=== PATIENT | male | born 2005 | race Caucasian/White ===

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

== ENCOUNTER 2024-05-11 02:53 | Inpatient (IN) | payer BC, SELFPAY ==
[2024-05-11] VITALS (34 sets, daily range): BP systolic 112–128; BP diastolic 49–80; PULSE 70–144; RESP 13–34; TEMP 36.2–37.7; O2SAT 92–100
--- NOTE | ~2024-05-11 | XR_ITS ---
EXAMINATION: XR chest 1V portable DATE: 05/11/2024 05:31 INDICATION: Asthma exacerbation. TECHNIQUE: A single frontal view of the chest was obtained on 2 radiographs. COMPARISON: None. FINDINGS: There is no pneumonia, pleural effusion, or pneumothorax. The heart size is normal. IMPRESSION: 1. No acute cardiopulmonary disease. Reviewed, dictated and finalized at location A.
--- NOTE | ~2024-05-11 | XR_ITS ---
EXAMINATION: XR chest 1V portable DATE: 05/11/2024 08:53 INDICATION: Shortness of breath. TECHNIQUE: A single frontal view of the chest was obtained. COMPARISON: Chest single view 05/11/2024 at 5:26 AM FINDINGS: There is no pneumonia, pleural effusion, or pneumothorax. The heart size is normal. IMPRESSION: 1. No acute cardiopulmonary disease. Reviewed, dictated and finalized at location A.
--- NOTE | ~2024-05-11 | CT_ITS ---
EXAMINATION: CTA chest PE protocol DATE: 05/11/2024 10:09 INDICATION: Shortness of breath. TECHNIQUE: Computed tomography angiography (CTA) of the chest was performed with 100 mL Omnipaque-350 intravenous contrast timed to evaluate the pulmonary arteries. Coronal maximum intensity projection 3D-reconstructions were created by the technologist. Automated exposure control and iterative reconst ruction technique were employed. The dose-length product was 380.86 mGy-cm. COMPARISON: None. FINDINGS: The lungs demonstrate mild atelectasis. There is a 3 mm nodule in lingula, likely benign. T here are mild groundglass opacities in the upper lobes associated with septal thickening (crazy pavin g). No pleural effusion. The heart size is normal. No pericardial effusion. There is no pulmonary emb olus. The bones are unremarkable. IMPRESSION: 1. No pulmonary embolus. 2. Mild crazy paving pattern in the upper lobes, consistent with inflammation/infection versus mild p ulmonary edema. Reviewed, dictated and finalized at location A. IMPRESSION: 1. No pulmonary embolus. 2. Mild crazy paving pattern in the upper lobes, consistent with inflammation/i nfection versus mild pulmonary edema.
[2024-05-11] MEDS: predniSONE 20 MG TABLET 40 MG PO (03:16)
--- NOTE | 2024-05-11 03:20 | ED.ASTHMA ---
HPI - Asthma General Chief Complaint: Asthma Stated Complaint: SOB, asthma Time Seen by Provider: 05/11/24 03:04 History of Present Illness HPI Narrative: patient presenting with shortness of breath and wheezing, he had history of asthma as a child but recently started having difficulty breathing again consistent with asthma. Does smoke but is trying to quit. Related Data Allergies Allergy/AdvReac Type Severity Reaction Status Date / Time No Known Allergies Allergy Verified 05/11/24 03:00 Review of Systems Review of Systems: All systems reviewed & are unremarkable except as noted in HPI and below PMFSH Past Medical History Medical History ADHD (attention deficit hyperactivity disorder) Asthma Depression Surgical History Surgical History History of tonsillectomy Family History Family History Mother Diabetes mellitus Father Skin cancer of nose Social History Social History Smoking status: Never smoker Alcohol intake: current Substance use type: marijuana Living arrangements: with family Occupation/Education: unemployed Exam Narrative: EXAMINATION OF ORGAN SYSTEMS/BODY AREAS: Constitutional: Vital signs per nursing GENERAL: quite dyspneic with accessory muscle use HEAD: Normal with no signs of head trauma. EYES: EOMI, conjunctiva normal ENT: Hearing grossly intact LUNGS: diminished breath sounds with wheezing, short sentences HEART: Tachycardic ABD: nondistended EXT: Normal range of motion SKIN: [No rashes or lesions.] NEURO: [Alert and oriented x 3. No gross focal sensory or strength deficits.] PSYCH: Normal affect Course Vital Signs Vital signs: Vital Signs Temperature 97.2 F L 05/11/24 02:57 Pulse Rate 138 H 05/11/24 02:57 Respiratory Rate 22 H 05/11/24 02:57 Blood Pressure 122/77 05/11/24 02:57 Pulse Oximetry 92 05/11/24 02:57 Oxygen Delivery Room Air 05/11/24 02:57 Temperature 97.2 F L 05/11/24 02:57 Pulse Rate 130 H 05/11/24 04:20 Respiratory Rate 13 05/11/24 04:20 Blood Pressure 118/66 05/11/24 04:20 Pulse Oximetry 100 05/11/24 04:20 Oxygen Delivery Room Air 05/11/24 02:57 MDM - Asthma MDM Narrative Medical decision making narrative: 19M h/o asthma p/w shortness of breath and wheezing; on exam diffuse wheezing, tachycardia, with labored respirations/belly breathing. Nebs + mag + IVF later, he is still using accessory muscles and still wheezing. I do feel he could benefit from obs at this time until he improves and he is agreeable to this; d/w hospitalist for admission. Lab Data 05/11/24 05:22 05/11/24 05:22 Labs: Lab Results 05/11/24 Range/Units 05:22 WBC Pending RBC Pending Hgb Pending Hct Pending MCV Pending MCH Pending MCHC Pending RDW Pending Plt Count Pending MPV Pending Immature Gran % (Auto) Pending Neut % (Auto) Pending Lymph % (Auto) Pending Young % (Auto) Pending Eos % (Auto) Pending Baso % (Auto) Pending Lymph # (Auto) Pending Young # (Auto) Pending Eos # (Auto) Pending Baso # (Auto) Pending Abs Immat Gran (auto) Pending Absolute Neuts (auto) Pending Absolute Nucleated RBC Pending Nucleated RBC % Pending Sodium 141 (137-145) mmol/L Potassium 4.0 (3.4-5.0) mmol/L Chloride 106 (98-107) mmol/L Carbon Dioxide 23 (22-30) mmol/L Anion Gap 12 (4-12) mmol/L BUN 11 (9-20) mg/dL Creatinine 0.70 (0.7-1.3) mg/dL Estim Creat Clear Calc 172 ml/min Estimated GFR > 60 (59 - ) Glucose 119 H (65-110) mg/dL Calcium 9.0 (8.4-10.2) mg/dL Discharge Plan Discharge Clinical Impression: Asthma with acute exacerbation Pat
[2024-05-11] MEDS: ALBUTEROL SULFATE NEB 2.5 MG/3 ML INH 15 MG INHALATION (03:25)
[2024-05-11] MEDS: IPRATROPIUM BR 0.02% INH SOLN 0.5 MG/2.5 ML VIAL 1 MG INHALATION (03:25)
[2024-05-11] MEDS: LACTATED RINGERS 1,000 ML 999 ML IV CONT ×2 (03:40→04:44)
[2024-05-11] MEDS: MAGNESIUM SULF 2 GM/WATER 50ML 2 GM/50 ML BAG IVPB (03:41)
[2024-05-11 05:27] LABS: Basophils Absolute Auto 0.1 K/mm3 (0.0-0.1); Basophils Percent Auto 0.5 % (0.2-1.2); Eosinophils Absolute Auto 0.5 K/mm3 (0-0.3); Eosinophils Percent Auto 2.1 % (0-4.4); Hematocrit 43.3 % (42.0-52.0); Hemoglobin 14.8 g/dL (14.0-18.0); Immature Granulocyte Absolute 0.09 K/mm3 (0.00-0.031); Immature Granulocyte Percent A 0.4 % (0-0.5); Lymphocytes Absolute Auto 0.95 K/mm3 (0.9-3.2); Lymphocytes Percent Auto 4.4 % (18.3-44.2); Mean Corpuscular HGB Conc 34.2 g/dl (32-36); Mean Corpuscular Hemoglobin 30.9 pg (26-34); Mean Corpuscular Volume 90.4 fl (80-100); Mean Platelet Volume 11.4 fl (7.4-10.4); Monocytes Absolute Auto 1.5 K/mm3 (0.1-0.6); Monocytes Percent Auto 6.8 % (2.6-8.5); Neutrophils Absolute Auto 18.6 K/mm3 (1.3-6.7); Neutrophils Percent Auto 85.8 % (45.5-73.1); Platelet Count Result 290 k/mm3 (150-375); Red Blood Count 4.79 M/mm3 (4.6-6.20); Red Cell Distribution Width 13.2 % (11.5-14.5); White Blood Count 21.6 K/mm3 (4.5-10.0)
[2024-05-11 05:38] LABS: Anion Gap 12 mmol/L (4-12); Blood Urea Nitrogen 11 mg/dL (9-20); Carbon Dioxide 23 mmol/L (22-30); Chloride 106 mmol/L (98-107); Estimated CRCL calculation 172 ml/min; Estimated Glomerular Filt Rate > 60; Glucose 119 mg/dL (65-110); Sodium 141 mmol/L (137-145)
--- NOTE | 2024-05-11 05:56 | ADMGEN ---
This patient, David Ramirez, was admitted to Medical Room 349-01. Patient/family oriented to hospital policies and general routines including ID bracelet, bed and alarms, visiting hours, pain management, procedures, bathroom and other care routines, personal items, smoking policy, room service/diet, and visiting hours. Information on how to activate the Rapid Response Team has been discussed. Patient/Family are encouraged to report perceived risks to care and to ask questions if they do not understand what they are told or what they should do.
[2024-05-11] MEDS: methylPREDNISolone SOD SUCC 125 MG VIAL IV PUSH (06:09)
[2024-05-11] MEDS: IPRATROPIUM 0.5 MG/ALBUTEROL SULFATE 2.5 MG AMPUL.NEB 3 ML INHALATION ×2 (06:22→07:44)
--- NOTE | 2024-05-11 06:32 | PM.IMHP ---
H&P: HPI History of Present Illness Date/Time: 05/11/24 06:32 Chief Complaint: shortness of breath Narrative: This is a 19-year-old male with a past medical history of childhood asthma and seasonal allergies presents to the emergency room with complaints of shortness of breath, cough, wheezing, chest pain and sore throat. He provides the following history which is supplemented by his father with the patient's permission. Last evening he had sudden onset of shortness of breath and wheezing for which he used an albuterol rescue inhaler left over from having COVID in March. When his symptoms did not resolve he came to the emergency room for further treatment. Since having COVID he has had a intermittently productive cough with yellow, brown sputum and over the last couple days he developed a sore throat. He reports having asthma as a child. He recently had an exacerbation in January of this year for which he received an albuterol inhaler. His father reports several half dozen episodes of pneumonia as a child, first at 6 months of age and the last around age 3-4. He also receives injections for his seasonal allergies. On exam he is having shortness of breath with abdominal muscle use. I am told by nursing, the patient, and his father that his work of breathing has improved. He is able to speak in short sentence. He just received IV steroid and a Duoneb prior to my visit at 0650. In the ED labs were fairly unremarkable other than WBC elevation of 21.6. A chest x-ray showed no acute cardiopulmonary process. He received an hour long albuterol neb with ipratropium, 2 L of LR, magnesium 2 grams, and prednisone 40 mg. He was admitted to the medical floor for observation given his persistent wheezing. Upon arrival to the medical floor the case worker ordered Methylprednisolone 125 mg IVP once and another Duoneb. Again, the patient and his father report that he looks improved after these therapies but he still has diffuse wheezing present. [facility] Past Medical History Medical History (Updated 05/11/24 @ 07:25 by Flory Euceda APRN) ADHD (attention deficit hyperactivity disorder) Asthma Depression Strabismus Surgical History Surgical History (Updated 05/11/24 @ 07:25 by Flory Euceda APRN) History of strabismus surgery History of tonsillectomy Hx of tympanostomy tubes Family History Family History Mother Diabetes mellitus Father Skin cancer of nose Grandparent Prostate carcinoma Social History Social History (Updated 05/11/24 @ 07:27 by Flory Euceda APRN) Social History: He is currently in between jobs and lives at home with his parents. He says that he quit smoking tobacco in May of 2023. He is trying to quit smoking marijuana. He use to use daily when he had the money. Last use was 3 days ago. Smoking status: Former smoker Alcohol intake: current Alcohol use details: rarely Substance use type: marijuana Other substance usage details: GUMMIES 2-3 PER WEEK Do You Feel Safe in your Home?: Yes Lack of Transportation: No Lack of Food: Never True Current Housing: I Have Housing Concerned About Future Housing: No Difficulty Paying Gas/Electric Bills: No Difficulty Paying for Meds: No Currently Unemployed: No Education: High School Diploma/GED Difficulty w/ Childcare or Family Care: No Living arrangements: with family Occupation/Education: unemployed Spiritual care concerns: No Meds Home Medications and Allergies Home Medications Medication Instructions Recorded Confirmed Type albuterol sulfate 90 mcg/actuation 1 inh inhalation Q4H PRN Shortness 05/11/24 05/11/24 History aerosol inhaler Of Breath Or Wheezing Allergies Allergy/AdvReac Type Severity Reaction Status Date / Time No Known Allergies Allergy Verified 05/11/24 03:00 Vital Signs Vital Signs - 24 hr 05/11/24 02:57 05/11/24 03:25 05/11/24 04:20 Temperat
--- NOTE | 2024-05-11 08:04 | ECG_ITS ---
Test Date: 2024-05-11 08:27:34 Measurements Intervals [place] Rate: 135 P: 74 VT: 116 QRS: 70 QRSD: 92 T: 57 QT: 331 QTc: 497 Interpretive Statements SINUS TACHYCARDIA WITH SHORT VT INTERVAL INCOMPLETE RIGHT BUNDLE BRANCH BLOCK [90+ ms QRS DURATION, TERMINAL R IN V1/V2, 40+ ms S IN I/aVL/V4/V5/V6] ABNORMAL RHYTHM ECG No previous ECG available for comparison Electronically Signed On 05-12-2024 13:31:37 CDT by Jaison Moser M.D.
[2024-05-11 08:37] LABS: Alveolar/Arterial O2 Gradient 52.5 mmHg; Base Excess ABG -1.7 mEq/l (+/-2.0); Fractional Inspired Oxygen 21 %; HCO3 ABG 21.6 mEq/l (22.0-26.0); Oxyhemoglobin 91.7 % THb (90.0-100.0); PCO2 ABG 33.2 mmHg (35.0-45.0); PO2 ABG 57.5 mmHg (80.0-100.0); PO2 FiO2 Ratio Arterial Blood 2.74 %; Total Hemoglobin 16.3 g/dL (12.0-18.0); pH ABG 7.432 (7.350-7.450)
[2024-05-11 08:38] LABS: Site Drawn RIGHT BRACHIAL
[2024-05-11 08:39] LABS: Device ROOM AIR
[2024-05-11 09:03] LABS: Influenza A QL RT-PCR Negative (Negative); Influenza B QL RT-PCR Negative (Negative); RSV RNA, RT-PCR Negative (Negative); SARS-CoV-2 RNA PCR Negative (Negative)
[2024-05-11] MEDS: ENOXAPARIN 40 MG/0.4 ML SYRINGE SUB-Q (09:25)
[2024-05-11] MEDS: LORATADINE 10 MG TABLET PO (09:25)
[2024-05-11] MEDS: cefTRIAXone 2 GM/NS 100 ML 2 GM/100 ML BAG IVPB (11:01)
[2024-05-11] MEDS: AZITHROMYCIN 500 MG/NS 250 ML 500 MG/250 ML BAG 250 MG IVPB (11:01)
[2024-05-11] MEDS: FUROSEMIDE INJ 40 MG/4 ML VIAL IV PUSH (11:01)
[2024-05-11] MEDS: IPRATROPIUM BR 0.02% INH SOLN 0.5 MG/2.5 ML VIAL INHALATION ×4 (11:41→23:13)
[2024-05-11] MEDS: LEVALBUTEROL NEB 1.25 MG/3 ML INHALATION ×4 (11:41→23:13)
[2024-05-11 12:11] LABS: NT Pro B Type Natriuretic Pept 66 pg/mL (19.9-100)
[2024-05-11] MEDS: methylPREDNISolone SOD SUCC 125 MG VIAL 60 MG IV PUSH ×2 (12:21→18:36)
[2024-05-12] VITALS (31 sets, daily range): BP systolic 119–130; BP diastolic 65–75; PULSE 100–120; RESP 19–21; TEMP 35.7–36.9; O2SAT 86–99
[2024-05-12] MEDS: methylPREDNISolone SOD SUCC 125 MG VIAL 60 MG IV PUSH ×5 (00:21→23:53)
[2024-05-12 03:53] LABS: Hematocrit 47.8 % (42.0-52.0); Hemoglobin 16.3 g/dL (14.0-18.0); Mean Corpuscular HGB Conc 34.1 g/dl (32-36); Mean Corpuscular Hemoglobin 30.7 pg (26-34); Mean Platelet Volume 11.5 fl (7.4-10.4); Platelet Count Result 321 k/mm3 (150-375); Red Blood Count 5.31 M/mm3 (4.6-6.20); Red Cell Distribution Width 13.5 % (11.5-14.5); White Blood Count 17.6 K/mm3 (4.5-10.0)
[2024-05-12 04:07] LABS: Alanine Aminotransferase 21 U/L (6-50); Albumin Level 4.9 g/dL (3.5-5.1); Alkaline Phosphatase 51 U/L (38-126); Anion Gap 16 mmol/L (4-12); Aspartate Amino Transferase 21 U/L (17-59); Bilirubin,Total 0.9 mg/dL (0.2-1.3); Blood Urea Nitrogen 16 mg/dL (9-20); Calcium 9.1 mg/dL (8.4-10.2); Carbon Dioxide 25 mmol/L (22-30); Chloride 100 mmol/L (98-107); Estimated CRCL calculation 152 ml/min; Estimated Glomerular Filt Rate > 60; Glucose 145 mg/dL (65-110); Magnesium 2.3 mg/dL (1.6-2.3); Potassium 4.2 mmol/L (3.4-5.0); Sodium 141 mmol/L (137-145)
[2024-05-12] MEDS: LEVALBUTEROL NEB 1.25 MG/3 ML INHALATION ×5 (04:32→20:10)
[2024-05-12] MEDS: IPRATROPIUM BR 0.02% INH SOLN 0.5 MG/2.5 ML VIAL INHALATION ×5 (04:32→20:10)
[2024-05-12] MEDS: cefTRIAXone 2 GM/NS 100 ML 2 GM/100 ML BAG IVPB (08:32)
[2024-05-12] MEDS: ENOXAPARIN 40 MG/0.4 ML SYRINGE SUB-Q (08:32)
[2024-05-12] MEDS: LORATADINE 10 MG TABLET PO (08:32)
[2024-05-12] MEDS: AZITHROMYCIN 500 MG/NS 250 ML 500 MG/250 ML BAG 250 MG IVPB (08:32)
--- NOTE | 2024-05-12 10:39 | PM.IMPN ---
Progress Note: A&P Assessment and Plan (1) Acute hypoxic respiratory failure: Code(s): J96.01 - Acute respiratory failure with hypoxia Status: Acute Assessment and Plan: Initially on presentation to the ED the patient was not hypoxic requiring oxygen. On admission to the floor an ABG was drawn and he was found to have hypoxemia with diffuse inspiratory, expiratory wheezing, shortness of breath,and substernal chest pressure. Concerns for asthma exacerbation vs bacterial pneumonia vs viral respiratory infection vs pulmonary edema vs PE PH 7.432/pCO2 33.2/pO2 57.5/HCO3 21.6 on 05/11 0830 on room air Patient was placed on BiPAP settings 09/08 rate of 12. Overnight he required FiO2 titration of 45% to maintain saturation greater than 90%. He had documented desaturations to 86% on 35% FiO2. Currently on Vapotherm Hi-flow 35%, 35 L satting 96% Leukocytosis of 21.6 present on admission. WBC 17.6 today CTA of the chest was negative for PE. It did have concerns for mild crazy paving pattern in upper lobes, consistent with inflammation/infection vs mild pulmonary edema. He was given Lasix 40 mg x 1. BNP normal at 66. Antibiotic coverage for CAP with Rocephin and Azithromycin Xopenex/Atrovent Q 4 hours scheduled, Solu-Medrol 60 mg IVP q 6 hours Viral respiratory panel was negative Sputum culture was ordered as well as urine legionella, pneumococcal antigen, and mycoplasma IgM antibody Procalcitonin pending, Blood cultures pending Pulmonology was consulted and will see the patient tomorrow (2) Asthma with acute exacerbation: Code(s): J45.901 - Unspecified asthma with (acute) exacerbation Status: Acute Assessment and Plan: History of childhood asthma. Recent exacerbation in January of this year for which he was seen at Urgent care. He was given antibiotics and an albuterol inhaler with a diagnosis of bronchitis. His mother reports a frequent history of pneumonia as a child. He was even worked up for cystic fibrosis. Plan DVT prophylaxis: Lovenox GI prophylaxis: Not applicable Glycemic control: Not applicable Code Status: Full code Disposition: 19-year-old male who presented from home with complaints of shortness of breath, wheezing and was found to be in a presumed asthma exacerbation. He did have a leukocytosis with complaints of productive alan sputum. He was admitted to medical floor initially and then transferred to IMU for BiPAP. He is receiving IV steroids, nebulizers, and high-flow oxygen therapy for hypoxemia. [employer] Consultant has been consulted and will follow with him tomorrow morning. Blood cultures and sputum culture pending. Medication reconciliation obtained via the following: Nurse completed on admission The file time of this note does not necessarily represent the time the patient was seen. Advance Care Plan I have confirmed that the patient's Advanced Care Plan is present, code status is documented, or surrogate decision maker is listed in patient medical record.: Yes Medication Reconciliation I have utilized all available resources to obtain, update and review the patients current medications (includes all prescriptions, OTC, herbals, cannabis, and nutritional supplements).: Yes Subjective Date/time seen: 05/12/24 10:39 Interval history: This is a 19-year-old male with a past medical history of childhood asthma and seasonal allergies presents to the emergency room with complaints of shortness of breath, cough, wheezing, chest pain and sore throat. He is being treated for a severe asthma exacerbation requiring steroids, nebulizers, and BiPAP. 05/12: James is feeling a little better today. He tolerated BiPAP all night. His wheezing has improved considerably since yesterday but it
[2024-05-12 11:53] LABS: Procalcitonin 0.1 ng/mL
[2024-05-12 13:40] LABS: MRSA (PCR) NOT DETECTED (NOT DETECTE)
[2024-05-13] VITALS (29 sets, daily range): BP systolic 117–122; BP diastolic 63–71; PULSE 94–118; RESP 18–22; TEMP 35.9–36.6; O2SAT 93–100
[2024-05-13] MEDS: IPRATROPIUM BR 0.02% INH SOLN 0.5 MG/2.5 ML VIAL INHALATION ×6 (01:14→20:23)
[2024-05-13] MEDS: LEVALBUTEROL NEB 1.25 MG/3 ML INHALATION ×6 (01:14→20:23)
[2024-05-13 04:50] LABS: Basophils Percent Auto 0.1 % (0.2-1.2); Hematocrit 47.1 % (42.0-52.0); Hemoglobin 15.6 g/dL (14.0-18.0); Immature Granulocyte Absolute 0.16 K/mm3 (0.00-0.031); Immature Granulocyte Percent A 0.7 % (0-0.5); Lymphocytes Absolute Auto 0.73 K/mm3 (0.9-3.2); Lymphocytes Percent Auto 3.2 % (18.3-44.2); Mean Corpuscular HGB Conc 33.1 g/dl (32-36); Mean Corpuscular Hemoglobin 30.2 pg (26-34); Mean Corpuscular Volume 91.1 fl (80-100); Mean Platelet Volume 11.9 fl (7.4-10.4); Monocytes Absolute Auto 0.5 K/mm3 (0.1-0.6); Monocytes Percent Auto 2.3 % (2.6-8.5); Neutrophils Absolute Auto 21.1 K/mm3 (1.3-6.7); Neutrophils Percent Auto 93.7 % (45.5-73.1); Platelet Count Result 360 k/mm3 (150-375); Red Blood Count 5.17 M/mm3 (4.6-6.20); Red Cell Distribution Width 13.3 % (11.5-14.5); White Blood Count 22.5 K/mm3 (4.5-10.0)
[2024-05-13 05:03] LABS: Alanine Aminotransferase 37 U/L (6-50); Albumin Level 4.4 g/dL (3.5-5.1); Alkaline Phosphatase 46 U/L (38-126); Anion Gap 14 mmol/L (4-12); Aspartate Amino Transferase 31 U/L (17-59); Bilirubin,Total 0.8 mg/dL (0.2-1.3); Blood Urea Nitrogen 18 mg/dL (9-20); Carbon Dioxide 24 mmol/L (22-30); Chloride 101 mmol/L (98-107); Estimated CRCL calculation 172 ml/min; Estimated Glomerular Filt Rate > 60; Glucose 160 mg/dL (65-110); Potassium 4.1 mmol/L (3.4-5.0); Sodium 139 mmol/L (137-145)
[2024-05-13] MEDS: methylPREDNISolone SOD SUCC 125 MG VIAL 60 MG IV PUSH ×3 (06:18→18:14)
[2024-05-13] MEDS: ENOXAPARIN 40 MG/0.4 ML SYRINGE SUB-Q (08:44)
[2024-05-13] MEDS: AZITHROMYCIN 500 MG/NS 250 ML 500 MG/250 ML BAG 250 MG IVPB (08:45)
[2024-05-13] MEDS: cefTRIAXone 2 GM/NS 100 ML 2 GM/100 ML BAG IVPB (08:45)
[2024-05-13] MEDS: LORATADINE 10 MG TABLET PO (08:45)
--- NOTE | 2024-05-13 10:30 | PM.IMPN ---
Progress Note: A&P Assessment and Plan (1) Acute hypoxic respiratory failure: Code(s): J96.01 - Acute respiratory failure with hypoxia Status: Acute Assessment and Plan: Initially on presentation to the ED the patient was not hypoxic requiring oxygen. On admission to the floor an ABG was drawn and he was found to have hypoxemia with diffuse inspiratory, expiratory wheezing, shortness of breath,and substernal chest pressure. Concerns for asthma exacerbation vs bacterial pneumonia vs viral respiratory infection vs pulmonary edema vs PE PH 7.432/pCO2 33.2/pO2 57.5/HCO3 21.6 on 05/11 0830 on room air Patient was placed on BiPAP settings 09/08 rate of 12. Overnight he required FiO2 titration of 45% to maintain saturation greater than 90%. He had documented desaturations to 86% on 35% FiO2. Currently on Vapotherm Hi-flow 35%, 35 L satting 96% Leukocytosis of 21.6 present on admission. WBC 17.6 today CTA of the chest was negative for PE. It did have concerns for mild crazy paving pattern in upper lobes, consistent with inflammation/infection vs mild pulmonary edema. He was given Lasix 40 mg x 1. BNP normal at 66. Antibiotic coverage for CAP with Rocephin and Azithromycin Xopenex/Atrovent Q 4 hours scheduled, Solu-Medrol 60 mg IVP q 6 hours Viral respiratory panel was negative Sputum culture was ordered as well as urine legionella, pneumococcal antigen, and mycoplasma IgM antibody Procalcitonin 0.1, Blood cultures no growth to date Pulmonology was consulted and will see the patient tomorrow Started on Ensure as his intake is poor (2) Asthma with acute exacerbation: Code(s): J45.901 - Unspecified asthma with (acute) exacerbation Status: Acute Assessment and Plan: History of childhood asthma. Recent exacerbation in January of this year for which he was seen at Urgent care. He was given antibiotics and an albuterol inhaler with a diagnosis of bronchitis. His mother reports a frequent history of pneumonia as a child. He was even worked up for cystic fibrosis. (3) Anxiety: Code(s): F41.9 - Anxiety disorder, unspecified Status: Acute Assessment and Plan: Reports a history of depression and anxiety. He told nursing he was previously on BuSpar in the past as well as Ativan as needed. He is having some anxiety surrounding his admission and is feeling anxious about being stuck in the hospital. Hesitant to give him benzodiazepine with his respiratory failure Will trial hydroxyzine TID PRN for anxiety Plan DVT prophylaxis: Lovenox GI prophylaxis: Not applicable Glycemic control: Not applicable Code Status: Full code Disposition: 19-year-old male who presented from home with complaints of shortness of breath, wheezing and was found to be in a presumed asthma exacerbation. He did have a leukocytosis with complaints of productive alan sputum. He was admitted to medical floor initially and then transferred to IMU for BiPAP. He is receiving IV steroids, nebulizers, and high-flow oxygen therapy for hypoxemia. Respooler has been consulted. Blood cultures with no growth to date, sputum culture pending. His procalcitonin was normal. Medication reconciliation obtained via the following: Nurse completed on admission The file time of this note does not necessarily represent the time the patient was seen. Subjective Date/time seen: 05/13/24 10:30 Interval history: This is a 19-year-old male with a past medical history of childhood asthma and seasonal allergies presents to the emergency room with complaints of shortness of breath, cough, wheezing, chest pain and sore throat. He is being treated for a severe asthma exacerbation requiring steroids, nebulizers, and BiPAP. 05/12: Mr Ramirez is feeling a little better today. He tolerated BiPAP all night. His wheezing has improved co
[2024-05-13] MEDS: hydrOXYzine HCL 25 MG TABLET PO (12:46)
--- NOTE | 2024-05-13 17:45 | PM.CNPUL ---
Assessment and Plan Assessment and plan (1) Acute hypoxic respiratory failure: Code(s): J96.01 - Acute respiratory failure with hypoxia Status: Acute Assessment and Plan: He has not used O2 in the past, does not have significant infiltrates on CTA. He has a crazy paving mosaic attenuation pattern, non-specific pattern that can be seen in infection, inflammatory conditions or pulmonary edema. He had IV Lasix on day of admission. His investigative studies are negative for a pathogen. The serology on admission is negative, no SARS-CoV-2, influenza A/B or RSV. MRSA swab negative, urine antigens pending for Legionella an Strep pneumo. Will check extended respiratory pathogen panel, large panel of mostly viral pathogens. Echo with bubble study to rule out intra-cardiac shunt as cause for hypoxemia. (2) Asthma with acute exacerbation: Code(s): J45.901 - Unspecified asthma with (acute) exacerbation Status: Acute Assessment and Plan: History of asthma from premature until age 1, improved with removal of tonsils and adenoids age 5. No problems until recently with respiratory decompensation May requiring Urgent Care, then COVID in March, no improvement since then. (3) History of nicotine vaping: Code(s): Z87.891 - Personal history of nicotine dependence Status: Acute Assessment and Plan: He was never a tobacco leaf smoker, only a nicotine user by vaping, quit a year ago today. He used marijuana not regularly, and not margarita at all recently. He is encouraged to wait until his brain is fully formed, avoid until then because of the neurologic effects but also his breathing; Not silva to put anything and fire into lungs especially with asthma, post infectious problems. (4) Rhinitis: Code(s): J31.0 - Chronic rhinitis Status: Acute Assessment and Plan: He has rhinitis, atopy with reactions to cats and molds, on immunotherapy started weekly injections a month ago, last injection May 08. He is on Claritin, IV solumedrol. Lowered dose of IV solumedrol to 40 mg Q 6 hours. (5) Atopy: Code(s): Z88.9 - Allergy status to unspecified drugs, medicaments and biological substances Status: Acute Assessment and Plan: see above Plan 1. Echo with bubble study; it is not common to have asthma exacerbations with significant hypoxemia. He is on AirVo, echo with bubble to r/o intracardiac shunt as contributing factor. 2. Extended respiratory pathogen panel; PPI AC b.i.d; excessive coughing often forces gastric acid into the airway, worsening coughing; wean IV steroids now 60 mg IV Q 6 hours, decrease to 40 IV Q 6 hours 3. Peak and post peak flows, pre and post nebulized bronchodilator treatments 4. He will need controller therapy on discharge; 5. When stable a few weeks out, will need full PFT and 6 Minute Walk. 6. He had 2nd episode of COVID in March 2024, has residual shortness of breath nghia with exertion and, at times, after exertion; he has rapid increase in heart rate and drop in saturation with exertion. He may have post COVID POTS, postural orthostatic tachycardia syndrome, could improve with medications, fluids, physical therapy, and conditioning. Will check his orthostatic vital signs prior to discharge. This could be a component of long COVID, and his shortness of breath also may reflect recent COVID. 7. Home O2 study before discharge. May need O2 when he leaves, will be able to wean at home. History of Present Illness History of Present Illness Consult date: 05/13/24 Requesting physician: Flory Euceda APRN Chief complaint: Asthma Exac Narrative: May 13, 2024 at 17:52 Room 214; his family is at the bedside, mother
[2024-05-13] MEDS: methylPREDNISolone SOD SUCC 40 MG VIAL IV PUSH (23:43)
[2024-05-14] VITALS (33 sets, daily range): BP systolic 122–130; BP diastolic 62–81; PULSE 68–117; RESP 18–20; TEMP 36.3–36.9; O2SAT 92–99
--- NOTE | 2024-05-14 | ECHO_ITS ---
Patient Info Name: David Ramirez Age: 19 years : 2005 Gender: Male Ht: 75 in Wt: 199 lbs BSA: 2.19 m2 HR: 75 bpm BP: 126 / 62 mmHg Technical Quality: Fair Exam Date: 05/14/2024 11:39 AM Exam Location: Echo Lab Patient Status: Inpatient Admit Date: 05/11/2024 Staff Ordering Physician: Charlette Buck MD Rolling Attendant: Francia Nguyen RDCs Attending Provider: Soleadd Farzier APRN Referring Physician: Heber JUSTICE; Exam Type: CA echo doppler w bubble study Study Info Indications J96.91 - Respiratory failure, unspecified with hypoxia Complete two-dimensional, color flow and Doppler transthoracic echocardiogram is performed. Summary 1. Complete two-dimensional, color flow and Doppler transthoracic echocardiogram is performed. 2. Left ventricular chamber dimension is normal. 3. Left ventricular systolic function is normal, estimated at 65-70%. 4. The left ventricular diastolic function is normal. 5. E/e' 6 is not elevated. 6. Agitated saline injection with and without valsalva maneuver opacified right side cardiac chambers with a few bubbles shunting to left side cardiac chambers suggestive of small patent foramen ovale. 7. There is trace mitral valve regurgitation. 8. There is trace tricuspid valve regurgitation. 9. RVSP is not calculated due to an inadequate TR jet. Left Ventricle E/e' 6 is not elevated. Left ventricular chamber dimension is normal. Left ventricular systolic function is normal, estimated at 65-70%. The left ventricular diastolic function is normal. Right Ventricle Right ventricular systolic function is normal and with normal TAPSE 2.4 cm. Right ventricular chamber dimension is normal. Left Atria Left atrial chamber dimension is normal. Right Atria Right atrial chamber dimension is normal. Atrial Septum Agitated saline injection with and without valsalva maneuver opacified right side cardiac chambers with a few bubbles shunting to left side cardiac chambers suggestive of small patent foramen ovale. Suspected patent foramen ovale visualized by 2D and agitated saline imaging. Aortic Valve The aortic valve is trileaflet. There is no aortic valve stenosis. There is no aortic valve regurgitation. Pulmonic Valve There is no pulmonic regurgitation. Mitral Valve There is no mitral valve stenosis. There is trace mitral valve regurgitation. Tricuspid Valve There is trace tricuspid valve regurgitation. RVSP is not calculated due to an inadequate TR jet. Pericardium/Pleural There is no pericardial effusion. Inferior Vena Cava Normal inferior vena cava with >50% collapse upon inspiration consistent with normal right atrial pressure, 5 mmHg. Aorta The aortic root size at the sinus of Valsalva is normal. Left Ventricular Outflow Tract Name Value Normal LVOT 2D LVOT Diameter 2.1 cm LVOT Doppler LVOT Peak Gradient 5 mmHg LVOT Mean Gradient 2 mmHg LVOT VTI 16 cm LVOT VTI/AV VTI Ratio 0.9 LVOT Stroke Volume 59 ml LVOT CO 5.8 l/min LVOT CI 2.6 l/min/m2
[2024-05-14] MEDS: IPRATROPIUM BR 0.02% INH SOLN 0.5 MG/2.5 ML VIAL INHALATION ×7 (01:02→23:40)
[2024-05-14] MEDS: LEVALBUTEROL NEB 1.25 MG/3 ML INHALATION ×7 (01:02→23:40)
[2024-05-14 06:01] LABS: Alanine Aminotransferase 36 U/L (6-50); Alkaline Phosphatase 42 U/L (38-126); Anion Gap 11 mmol/L (4-12); Aspartate Amino Transferase 22 U/L (17-59); Basophils Percent Auto 0.1 % (0.2-1.2); Bilirubin,Total 0.7 mg/dL (0.2-1.3); Blood Urea Nitrogen 14 mg/dL (9-20); Calcium 8.7 mg/dL (8.4-10.2); Carbon Dioxide 24 mmol/L (22-30); Chloride 103 mmol/L (98-107); Estimated CRCL calculation 198 ml/min; Estimated Glomerular Filt Rate > 60; Glucose 140 mg/dL (65-110); Hematocrit 45.3 % (42.0-52.0); Hemoglobin 14.8 g/dL (14.0-18.0); Immature Granulocyte Absolute 0.16 K/mm3 (0.00-0.031); Lymphocytes Absolute Auto 0.84 K/mm3 (0.9-3.2); Lymphocytes Percent Auto 5.3 % (18.3-44.2); Mean Corpuscular HGB Conc 32.7 g/dl (32-36); Mean Corpuscular Volume 91.7 fl (80-100); Mean Platelet Volume 11.9 fl (7.4-10.4); Monocytes Absolute Auto 0.5 K/mm3 (0.1-0.6); Neutrophils Absolute Auto 14.5 K/mm3 (1.3-6.7); Neutrophils Percent Auto 90.6 % (45.5-73.1); Platelet Count Result 339 k/mm3 (150-375); Potassium 3.9 mmol/L (3.4-5.0); Red Blood Count 4.94 M/mm3 (4.6-6.20); Red Cell Distribution Width 13.3 % (11.5-14.5); Sodium 138 mmol/L (137-145)
[2024-05-14] MEDS: PANTOPRAZOLE SOD SESQUIHYDRATE 20 MG TAB PO ×2 (06:28→17:16)
[2024-05-14] MEDS: methylPREDNISolone SOD SUCC 40 MG VIAL IV PUSH ×3 (06:28→17:16)
[2024-05-14] MEDS: LORATADINE 10 MG TABLET PO (08:47)
[2024-05-14] MEDS: ENOXAPARIN 40 MG/0.4 ML SYRINGE SUB-Q (08:47)
[2024-05-14] MEDS: cefTRIAXone 2 GM/NS 100 ML 2 GM/100 ML BAG IVPB (08:47)
[2024-05-14] MEDS: AZITHROMYCIN 500 MG/NS 250 ML 500 MG/250 ML BAG 250 MG IVPB (08:47)
--- NOTE | 2024-05-14 11:27 | PM.IMPN ---
Progress Note: A&P Assessment and Plan (1) Acute hypoxic respiratory failure: Code(s): J96.01 - Acute respiratory failure with hypoxia Status: Acute Assessment and Plan: Initially on presentation to the ED the patient was not hypoxic requiring oxygen. On admission to the floor an ABG was drawn and he was found to have hypoxemia with diffuse inspiratory, expiratory wheezing, shortness of breath,and substernal chest pressure. Concerns for asthma exacerbation vs bacterial pneumonia vs viral respiratory infection vs pulmonary edema vs PE PH 7.432/pCO2 33.2/pO2 57.5/HCO3 21.6 on 05/11 0830 on room air Patient was placed on BiPAP settings 09/08 rate of 12. Overnight he required FiO2 titration of 45% to maintain saturation greater than 90%. He had documented desaturations to 86% on 35% FiO2. Currently on Vapotherm Hi-flow 35%, 35 L satting 96% Leukocytosis of 21.6 present on admission. WBC 17.6-->22-->16.0 CTA of the chest was negative for PE. It did have concerns for mild crazy paving pattern in upper lobes, consistent with inflammation/infection vs mild pulmonary edema. He was given Lasix 40 mg x 1. BNP normal at 66. Antibiotic coverage for CAP with Rocephin and Azithromycin Xopenex/Atrovent Q 4 hours scheduled Solu-Medrol 60 mg IVP q 6 hours---Starting to wean 05/13, now Solu-medrol 40 mg q 6 hours Viral respiratory panel was negative. Extended panel sent. Sputum culture was ordered as well as urine legionella, pneumococcal antigen, and mycoplasma IgM antibody Procalcitonin 0.1, Blood cultures no growth to date Pre and Post peak flows ordered by pulm. Will need repeat testing and 6 minute walk test as an outpatient. Possibly COVID POTS causing tachycardia? Orthostatic vitals at discharge. ECHO is pending today for possible intracardiac source He will need inhalers at discharge for his asthma Pulmonology was consulted, recs are noted and appreciated Started on Ensure as his intake is poor (2) Asthma with acute exacerbation: Code(s): J45.901 - Unspecified asthma with (acute) exacerbation Status: Acute Assessment and Plan: History of childhood asthma. Recent exacerbation in January of this year for which he was seen at Urgent care. He was given antibiotics and an albuterol inhaler with a diagnosis of bronchitis. His mother reports a frequent history of pneumonia as a child. He was even worked up for cystic fibrosis. (3) Anxiety: Code(s): F41.9 - Anxiety disorder, unspecified Status: Acute Assessment and Plan: Reports a history of depression and anxiety. He told nursing he was previously on BuSpar in the past as well as Ativan as needed. He is having some anxiety surrounding his admission and is feeling anxious about being stuck in the hospital. Hesitant to give him benzodiazepine with his respiratory failure Will trial hydroxyzine TID PRN for anxiety Plan DVT prophylaxis: Lovenox GI prophylaxis: Not applicable Glycemic control: Not applicable Code Status: Full code Disposition: 19-year-old male who presented from home with complaints of shortness of breath, wheezing and was found to be in a presumed asthma exacerbation with acute hypoxic respiratory failure. He did have a leukocytosis with complaints of productive alan sputum. He was admitted to medical floor initially and then transferred to IMU for BiPAP. He is receiving IV steroids, nebulizers, and high-flow oxygen therapy for hypoxemia. [facility] has been consulted. Blood cultures with no growth to date, sputum culture pending. His procalcitonin was normal. He is getting an echocardiogram today. Medication reconciliation obtained via the following: Nurse completed on admission The file time of this note does not necessarily represent the time the patient was seen. Subjective Date/time seen: 05/02
--- NOTE | 2024-05-14 17:04 | PM.PNPUL ---
Progress Note: A&P Assessment and Plan (1) Acute hypoxic respiratory failure: Code(s): J96.01 - Acute respiratory failure with hypoxia Status: Acute Assessment and Plan: He has not used O2 in the past, does not have significant infiltrates on CTA; crazy paving mosaic attenuation pattern, non-specific pattern that can be seen in infection, inflammatory conditions or pulmonary edema. Improved with IV Lasix on day of admission. Serologies negative; serology = negative for SARS-CoV-2, influenza A/B or RSV. MRSA swab negative. Echo 05/14/24 is negative, no significant shunt. Urine antigens pending for Legionella an Strep pneumo, mycoplasma, and extended respiratory pathogen panel are also pending. . O2 need now 5 L/min, off AirVO. (2) Asthma with acute exacerbation: Code(s): J45.901 - Unspecified asthma with (acute) exacerbation Status: Acute Assessment and Plan: History of asthma from premature until age 1, improved with removal of tonsils and adenoids age 5. No problems until recently with respiratory decompensation in January requiring Urgent Care, then COVID in March, has not been able to return to baseline. His peak flows are 52-59% best predicted peak flow, his best predicted lower limit of normal is 517 L/min. This is Yellow zone; goal is to have him improved by discharge, and he may always be in the yellow zone. We will establish his actual normal values after discharge and recovery. (3) History of nicotine vaping: Code(s): Z87.891 - Personal history of nicotine dependence Status: Acute Assessment and Plan: He was never a tobacco leaf smoker, only a nicotine user by vaping, quit a year ago today. He used marijuana not regularly, and not much at all recently. He is encouraged to wait until his brain is fully formed, avoid until then because of the neurologic effects but also his breathing; Not silva to put anything and fire into lungs especially with asthma, post infectious problems. (4) Rhinitis: Code(s): J31.0 - Chronic rhinitis Status: Acute Assessment and Plan: He has rhinitis, atopy with reactions to cats and molds, on immunotherapy started weekly injections a month ago, last injection May 08. He is on Claritin, IV solumedrol. Lowered dose of IV solumedrol to 40 mg Q 6 hours. (5) Atopy: Code(s): Z88.9 - Allergy status to unspecified drugs, medicaments and biological substances Status: Acute Assessment and Plan: Plan 1. He is improving, and may be ready for discharge in the next 2 days. O2 need is lower, less coughing and less short of breath. He can eat and drink adequately. He is on 5 L/min, saturation is mid 90s. High heart rate with walking may be POTS, may be due to long COVID. 2. He will need controller therapy on discharge; his estimated best predicted peak flow height 75 inches, 19 yo male could be 517 L/min; green 418 to 517; yellow 258 to 417; below 258 = red. he has been achieving 350 - 400 L/min, yellow zone since admission. I labeled his PF meter; he can start measuring, recording values at home. 3. When stable a few weeks out, will need full PFT and 6 Minute Walk. 4. He had 2nd episode of COVID in March 2024, has residual shortness of breath nghia with exertion and, at times, after exertion; he has rapid increase in heart rate and drop in saturation with exertion. He may have post COVID POTS, postural orthostatic tachycardia syndrome, could improve with medications, fluids, physical therapy, and conditioning. 5. Check his orthostatic vital signs prior to discharge. This could be a component of l
[2024-05-14] MEDS: AMOXICILLIN/CLAVULANATE K 875-125 MG TAB 1 TABLET PO (22:17)
[2024-05-14] MEDS: MELATONIN 5 MG TABLET PO (22:18)
[2024-05-15] VITALS (22 sets, daily range): BP systolic 118–139; BP diastolic 56–82; PULSE 57–121; RESP 18–20; TEMP 36.1–36.4; O2SAT 93–97
[2024-05-15] MEDS: methylPREDNISolone SOD SUCC 40 MG VIAL IV PUSH (00:04)
[2024-05-15 04:49] LABS: Basophils Percent Auto 0.2 % (0.2-1.2); Eosinophils Percent Auto 0.1 % (0-4.4); Hematocrit 44.5 % (42.0-52.0); Hemoglobin 14.4 g/dL (14.0-18.0); Immature Granulocyte Absolute 0.21 K/mm3 (0.00-0.031); Immature Granulocyte Percent A 1.4 % (0-0.5); Lymphocytes Absolute Auto 0.95 K/mm3 (0.9-3.2); Lymphocytes Percent Auto 6.4 % (18.3-44.2); Mean Corpuscular HGB Conc 32.4 g/dl (32-36); Mean Corpuscular Hemoglobin 30.1 pg (26-34); Mean Corpuscular Volume 93.1 fl (80-100); Mean Platelet Volume 11.6 fl (7.4-10.4); Monocytes Absolute Auto 0.6 K/mm3 (0.1-0.6); Neutrophils Absolute Auto 13.1 K/mm3 (1.3-6.7); Neutrophils Percent Auto 87.9 % (45.5-73.1); Platelet Count Result 341 k/mm3 (150-375); Red Blood Count 4.78 M/mm3 (4.6-6.20); Red Cell Distribution Width 13.2 % (11.5-14.5); White Blood Count 14.9 K/mm3 (4.5-10.0)
[2024-05-15 04:57] LABS: Alanine Aminotransferase 55 U/L (6-50); Albumin Level 3.7 g/dL (3.5-5.1); Alkaline Phosphatase 39 U/L (38-126); Anion Gap 8 mmol/L (4-12); Aspartate Amino Transferase 26 U/L (17-59); Bilirubin,Total 0.5 mg/dL (0.2-1.3); Blood Urea Nitrogen 12 mg/dL (9-20); Calcium 8.6 mg/dL (8.4-10.2); Carbon Dioxide 25 mmol/L (22-30); Chloride 105 mmol/L (98-107); Estimated CRCL calculation 198 ml/min; Estimated Glomerular Filt Rate > 60; Glucose 135 mg/dL (65-110); Potassium 4.3 mmol/L (3.4-5.0); Sodium 138 mmol/L (137-145)
[2024-05-15] MEDS: LEVALBUTEROL NEB 1.25 MG/3 ML INHALATION ×4 (04:59→14:57)
[2024-05-15] MEDS: IPRATROPIUM BR 0.02% INH SOLN 0.5 MG/2.5 ML VIAL INHALATION ×4 (04:59→14:57)
[2024-05-15] MEDS: PANTOPRAZOLE SOD SESQUIHYDRATE 20 MG TAB PO (06:30)
[2024-05-15] MEDS: AMOXICILLIN/CLAVULANATE K 875-125 MG TAB 1 TABLET PO (08:29)
[2024-05-15] MEDS: LORATADINE 10 MG TABLET PO (08:29)
[2024-05-15] MEDS: predniSONE 10 MG TABLET 60 MG PO (08:29)
[2024-05-15] MEDS: ENOXAPARIN 40 MG/0.4 ML SYRINGE SUB-Q (08:34)
--- NOTE | 2024-05-15 11:53 | PCRCNOTE ---
Home O2 eval complete. Patient does not require Home O2 at this time. RN notified.
--- NOTE | 2024-05-15 14:15 | P.DS_ITS ---
DS: Admitting Diagnosis Discharge Date 05/15/2024 Admitting Diagnosis Acute respiratory failure with hypoxia secondary to asthma exacerbation/pneumonia DS: Discharge Diagnosis Discharge Diagnosis (1) Acute hypoxic respiratory failure: Code(s): J96.01 - Acute respiratory failure with hypoxia Status: Acute Assessment and Plan: Initially on presentation to the ED the patient was not hypoxic requiring oxygen. On admission to the floor an ABG was drawn and he was found to have hypoxemia with diffuse inspiratory, expiratory wheezing, shortness of breath,and substernal chest pressure. Concerns for asthma exacerbation vs bacterial pneumonia vs viral respiratory infection vs pulmonary edema vs PE * PH 7.432/pCO2 33.2/pO2 57.5/HCO3 21.6 on 05/11 0830 on room air * Patient was placed on BiPAP settings 09/08 rate of 12. Overnight he required FiO2 titration of 45% to maintain saturation greater than 90%. He had documented desaturations to 86% on 35% FiO2. * Currently on Vapotherm Hi-flow 35%, 35 L satting 96% * Leukocytosis of 21.6 present on admission. WBC 17.6-->22-->16.0 * CTA of the chest was negative for PE. It did have concerns for mild crazy paving pattern in upper lobes, consistent with inflammation/infection vs mild pulmonary edema. * He was given Lasix 40 mg x 1. BNP normal at 66. * Antibiotic coverage for CAP with Rocephin and Azithromycin * Xopenex/Atrovent Q 4 hours scheduled * Solu-Medrol 60 mg IVP q 6 hours---Starting to wean 05/13, now Solu-medrol 40 mg q 6 hours * Viral respiratory panel was negative. Extended panel sent. * Sputum culture was ordered as well as urine legionella, pneumococcal antigen, and mycoplasma IgM antibody * Procalcitonin 0.1, Blood cultures no growth to date * Pre and Post peak flows ordered by pulm. Will need repeat testing and 6 minute walk test as an outpatient. * Possibly COVID POTS causing tachycardia? Orthostatic vitals at discharge. * ECHO is pending today for possible intracardiac source * He will need inhalers at discharge for his asthma * Pulmonology was consulted, recs are noted and appreciated * Started on Ensure as his intake is poor (2) Asthma with acute exacerbation: Code(s): J45.901 - Unspecified asthma with (acute) exacerbation Status: Acute Assessment and Plan: History of childhood asthma. Recent exacerbation in January of this year for which he was seen at Urgent care. He was given antibiotics and an albuterol inhaler with a diagnosis of bronchitis. His mother reports a frequent history of pneumonia as a child. He was even worked up for cystic fibrosis. (3) Anxiety: Code(s): F41.9 - Anxiety disorder, unspecified Status: Acute Assessment and Plan: Reports a history of depression and anxiety. He told nursing he was previously on BuSpar in the past as well as Ativan as needed. He is having some anxiety surrounding his admission and is feeling anxious about being stuck in the hospital. * Hesitant to give him benzodiazepine with his respiratory failure * Will trial hydroxyzine TID PRN for anxiety Plan Disposition: Patient discharged to home follow-up with Pulmonology 2 weeks for PFT and 6 min walk study DS: Summary Hospital Course Reason for hospitalization: Acute respiratory failure with hypoxia secondary to asthma exacerbation/pneumonia Hospital Course: This was a 19-year-old male with a past medical history of childhood asthma and seasonal allergies presents to t
--- NOTE | 2024-05-15 14:15 | PM.DS ---
DS: Admitting Diagnosis Discharge Date 05/15/2024 Admitting Diagnosis Acute respiratory failure with hypoxia secondary to asthma exacerbation/pneumonia DS: Discharge Diagnosis Discharge Diagnosis (1) Acute hypoxic respiratory failure: Code(s): J96.01 - Acute respiratory failure with hypoxia Status: Acute Assessment and Plan: Initially on presentation to the ED the patient was not hypoxic requiring oxygen. On admission to the floor an ABG was drawn and he was found to have hypoxemia with diffuse inspiratory, expiratory wheezing, shortness of breath,and substernal chest pressure. Concerns for asthma exacerbation vs bacterial pneumonia vs viral respiratory infection vs pulmonary edema vs PE PH 7.432/pCO2 33.2/pO2 57.5/HCO3 21.6 on 05/11 0830 on room air Patient was placed on BiPAP settings 09/08 rate of 12. Overnight he required FiO2 titration of 45% to maintain saturation greater than 90%. He had documented desaturations to 86% on 35% FiO2. Currently on Vapotherm Hi-flow 35%, 35 L satting 96% Leukocytosis of 21.6 present on admission. WBC 17.6-->22-->16.0 CTA of the chest was negative for PE. It did have concerns for mild crazy paving pattern in upper lobes, consistent with inflammation/infection vs mild pulmonary edema. He was given Lasix 40 mg x 1. BNP normal at 66. Antibiotic coverage for CAP with Rocephin and Azithromycin Xopenex/Atrovent Q 4 hours scheduled Solu-Medrol 60 mg IVP q 6 hours---Starting to wean 05/13, now Solu-medrol 40 mg q 6 hours Viral respiratory panel was negative. Extended panel sent. Sputum culture was ordered as well as urine legionella, pneumococcal antigen, and mycoplasma IgM antibody Procalcitonin 0.1, Blood cultures no growth to date Pre and Post peak flows ordered by pulm. Will need repeat testing and 6 minute walk test as an outpatient. Possibly COVID POTS causing tachycardia? Orthostatic vitals at discharge. ECHO is pending today for possible intracardiac source He will need inhalers at discharge for his asthma Pulmonology was consulted, recs are noted and appreciated Started on Ensure as his intake is poor (2) Asthma with acute exacerbation: Code(s): J45.901 - Unspecified asthma with (acute) exacerbation Status: Acute Assessment and Plan: History of childhood asthma. Recent exacerbation in January of this year for which he was seen at Urgent care. He was given antibiotics and an albuterol inhaler with a diagnosis of bronchitis. His mother reports a frequent history of pneumonia as a child. He was even worked up for cystic fibrosis. (3) Anxiety: Code(s): F41.9 - Anxiety disorder, unspecified Status: Acute Assessment and Plan: Reports a history of depression and anxiety. He told nursing he was previously on BuSpar in the past as well as Ativan as needed. He is having some anxiety surrounding his admission and is feeling anxious about being stuck in the hospital. Hesitant to give him benzodiazepine with his respiratory failure Will trial hydroxyzine TID PRN for anxiety Plan Disposition: Patient discharged to home follow-up with Pulmonology 2 weeks for PFT and 6 min walk study DS: Summary Hospital Course Reason for hospitalization: Acute respiratory failure with hypoxia secondary to asthma exacerbation/pneumonia Hospital Course: This was a 19-year-old male with a past medical history of childhood asthma and seasonal allergies presents to the emergency room with complaints of shortness of breath, cough, wheezing, chest pain and sore throat. He is being treated for acute respiratory failure with hypoxia secondary to asthma exacerbation requiring steroids, nebulizers, and BiPAP. 05/12: Mr Ramirez is feeling a little better today. He tolerated BiPAP all night. His wheezing has improved considerably since yesterday but
[2024-05-16 19:39] LABS: Pneumococcal Antigen Urine NOT DETECTED
[2024-05-17 15:04] LABS: Adenovirus DNA Not Detected (Not Detected); Chlamydophila pneumoniae Not Detected (Not Detected); Coronavirus 229E Not Detected (Not Detected); Coronavirus HKU1 Not Detected (Not Detected); Coronavirus NL63 Not Detected (Not Detected); Coronavirus OC43 Not Detected (Not Detected); Human Metapneumovirus Not Detected (Not Detected); Human Parainfluenza Virus 1 Not Detected (Not Detected); Human Parainfluenza Virus 2 Not Detected (Not Detected); Human Parainfluenza Virus 3 Not Detected (Not Detected); Human Parainfluenza Virus 4 Not Detected (Not Detected); Human RSV B Not Detected (Not Detected); Influenza A Not Detected (Not Detected); Influenza B Not Detected (Not Detected); Mycoplasma pneumoniae Not Detected (Not Detected); Rhinovirus/Enterovirus Not Detected (Not Detected)
[2024-05-17 17:44] LABS: Mycoplasma IgM Antibody Titer 882 U/mL
[2024-05-18 21:49] LABS: Legionella pneumophila Ag Ur NOT DETECTED
== END 2024-05-15 15:30 | disposition home or self-care (01) | DRG 189 ==
LOC: ANHED 04:40 → ANH3MED 05:50 → ANHIMU 14:48 → ANH3MED 05-16 13:36
PROVIDERS: Internal Medicine Critical Care Medicine; Nurse Practitioner Acute Care; Admitting Provider Internal Medicine; Emergency Provider Emergency Medicine; PCP Family Medicine; Visit Provider Nurse Practitioner Family
DX: J96.01 Acute respiratory failure with hypoxia (principal); J45.901 Unspecified asthma with (acute) exacerbation; J30.81 Allergic rhinitis due to animal (cat) (dog) hair and dander; F41.9 Anxiety disorder, unspecified; Z86.16 Personal history of COVID-19; Z87.891 Personal history of nicotine dependence; Z20.822 Contact with and (suspected) exposure to COVID-19
CPT/HCPCS: 36415; 36600; 71045; 71275; 80048; 80053; 82805; 83735; 83880; 84145; 85025; 85027; 86738; 87040; 87070; 87205; 87449; 87633; 87637; 87641; 87899; 93005; 93306; 94002; 94003; 94618; 94640; 94660; 96361; 96365; 96366; 96375; 99285; A9270; G0378; J0456; J0696; J1650; J1940; J2919; J3475; J7120; J7512; Q9967

== ENCOUNTER 2024-05-29 12:25 | Outpatient (CLI) | payer BC, SELFPAY ==
--- NOTE | 2024-05-30 11:27 | P.PCNPFT_ITS ---
PFT Procedure Performed PFT Procedure Performed Spirometry with Pre/Post Bronchodilator Plethysmography (Lung Vol) Diffusing Cap (DLCO) Flow Vol Loop PFT Interpretation This is a pulmonary function test with pre and post-bronchodilator spirometry, plethysmography and diffusing capacity. The test was performed and results interpreted in accordance with the 2019 and 2005 ATS/ERS Task Force guidelines respectively using the Global Lung Function Initiative-2012 reference equations. Patient demonstrated good effort and cooperation. Reproducibility criteria were met. The quality of the pre bronchodilator spirometry maneuver was Grade B and post bronchodilator spirometry maneuver was Grade A. Findings: Spirometry: There is decreased maximal expiratory airflow at all lung volumes with concave expiratory flow tracing. The contour the inspiratory flow tracing is normal. The pre bronchodilator FVC is 6.59 L, 98% predicted. The pre bronchodilator FEV1 is 3.70 L, 66% predicted. The pre bronchodilator FEV1: FVC ratio is 56%. The post bronchodilator FVC is 6.50 L, representing a 1% decrease. The post bronchodilator FEV1 is 4.59 L, representing a 24% increase. The post bronchodilator FEV1: FVC ratio is 71%. Plethysmography: The total lung capacity is 7.88 L, 98% predicted. The functio nal residual capacity is 3.66 L, 91% predicted. The residual volume is 1.29 L, 73% predicted. Diffusing capacity: The diffusing capacity unadjusted for hemoglobin and carboxyhemoglobin is 31.1, 78% predicted. The diffusing capacity adjusted for alveolar volume is 4.95, 97% predicted. Impression: There is a moderate bstructive abnormality. There is significant improvement after inhaling a single dose of albuterol. The lung volumes are normal. The diffusing capacity unadjusted for hemoglobin and carboxyhemoglobin is mildly decreased and normalizes when adjusted for alveolar volume. There are no prior studies for comparison
== END 2024-05-29 12:26 | disposition home or self-care (01) ==
LOC: ANHPFT 12:29
PROVIDERS: PCP Family Medicine; Visit Provider Internal Medicine Critical Care Medicine
DX: J45.909 Unspecified asthma, uncomplicated (principal)
CPT/HCPCS: 94060; 94726; 94729